=== PATIENT | male | born 1960 | race Caucasian/White ===

== ENCOUNTER 2017-04-21 06:29 | Emergency (ER) | END 2017-04-21 16:25 | disposition home or self-care (01) ==

== ENCOUNTER 2017-04-22 18:35 | Emergency (ER) | END 2017-04-22 22:00 | disposition left against medical advice (07) ==

== ENCOUNTER 2017-05-02 01:55 | Emergency (ER) | END 2017-05-02 01:59 | disposition left against medical advice (07) ==

== ENCOUNTER 2017-11-23 01:57 | Emergency (ER) | END 2017-11-23 06:35 | disposition left against medical advice (07) ==